=== PATIENT | female | born 1940 | race Caucasian/White ===

== ENCOUNTER → 2018-09-28 | Outpatient (CLI) | payer MEDICARE ==
[~2018-09-28] MED LIST: AMLO5TAB10 PO; ATOR20TA58 PO; IBUP200T58 PO; LISI1TAB7 PO; RANI150T2 PO
--- NOTE | 2018-09-28 14:11 | RAD ---
Left lower extremity bone length exam, 09/28/2018: HISTORY: Preop evaluation for knee surgery AP standing views of the left femur and lower leg were obtained with skin markers placed laterally as requested to aid in bone length measurements for surgical planning. There is severe degenerative change at the left knee joint with dominant involvement of the medial compartment, and a moderate associated varus deformity. No other bony abnormality is identified on this limited exam. Electronically signed by: Errol Harden MD (09/28/2018 2:08 PM) [facility]
--- NOTE | 2018-09-28 15:52 | RAD ---
MR of the left knee - Kessler and Nephew protocol History: Left knee DJD.. Technique: Images are obtained in accordance with the standard Kessler and Nephew protocol. 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 Severe primary osteoarthritis. Medial meniscal tear. Moderate joint effusion. Anterior cruciate ligament is poorly defined. The posterior crucial ligament is thick and irregular. Anterior subcutaneous edema. Electronically signed by: Noam Davidson MD (09/28/2018 3:49 PM) [id number]
== END | disposition home or self-care (01) ==
LOC: RAD 14:27
PROVIDERS: ATTEND Orthopaedic Surgery Sports Medicine
DX: S83.242A Other tear of medial meniscus, current injury, left knee, initial encounter (principal); M21.162 Varus deformity, not elsewhere classified, left knee; M25.462 Effusion, left knee; M17.12 Unilateral primary osteoarthritis, left knee; X58.XXXA Exposure to other specified factors, initial encounter; Y93.89 Activity, other specified; Y92.89 Other specified places as the place of occurrence of the external cause; Y99.8 Other external cause status
CPT/HCPCS: 73721; 77073

== ENCOUNTER → 2018-10-11 | Outpatient (CLI) | payer MEDICARE, OTHER ==
[2018-10-11 11:16] LABS: BILIRUBIN,URINE NEGATIVE (NEG); CLARITY,URINE CLEAR; COLOR,URINE YELLOW; NITRITE,URINE POSITIVE (NEG); PROTEIN,URINE NEGATIVE (NEG-TRACE); UROBILINOGEN,URINE 0.2 mg/dL (0.2 mg/dL)
[2018-10-11 11:23] LABS: RBC,URINE 0 /HPF (0-2); SQUAMOUS EPITHELIAL CELL,UR OCC /LPF
[2018-10-11 11:24] LABS: BACTERIA,URINE FEW /HPF (0-FEW)
[2018-10-11 11:39] LABS: BASO # 0.1 x10^3/uL (0.0-0.2); BASO % 1 % (0-3); EOS # 0.3 x10^3/uL (0.0-0.7); EOS % 5 % (0-3); HEMATOCRIT 33.8 % (36.0-47.0); HEMOGLOBIN 11.2 g/dL (12.0-15.5); LYMPH # 1.6 x10^3/uL (1.0-4.8); LYMPH % 29 % (24-48); MEAN CORPUSCULAR HEMOGLOBIN 31 pg (25-35); MEAN CORPUSCULAR HGB CONC 33 g/dL (31-37); MEAN CORPUSCULAR VOLUME 93 fL (79-100); MONO # 0.4 x10^3/uL (0.0-1.1); MONO % 8 % (0-9); NEUT # 3.1 x10^3uL (1.8-7.7); NEUT % 58 % (31-73); PLATELET COUNT 241 x10^3/uL (140-400); RED BLOOD COUNT 3.65 x10^6/uL (3.50-5.40); RED CELL DISTRIBUTION WIDTH 12.9 % (11.5-14.5); WHITE BLOOD COUNT 5.5 x10^3/uL (4.0-11.0)
[2018-10-11 11:49] LABS: PROTHROMBIN TIME PATIENT 14.1 SEC (11.7-14.0)
--- NOTE | 2018-10-11 11:49 | EKG ---
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
[2018-10-11 12:21] LABS: ALBUMIN 3.7 g/dL (3.4-5.0); CALCIUM 9.7 mg/dL (8.5-10.1); CREATININE 1.6 mg/dL (0.6-1.0); GFR 31.3; POTASSIUM 4.6 mmol/L (3.5-5.1)
--- NOTE | 2018-10-11 12:56 | RAD ---
EXAM: PA and Lateral Views of the Chest DATE: 10/11/2018 10:55 AM INDICATION: COMPARISON: No Prior FINDINGS: The heart is not enlarged. Mediastinal and hilar contours are normal. No focal parenchymal airspace opacity. No pleural effusion or pneumothorax. Degenerative changes of the spine are seen with associated thoracolumbar curvature. IMPRESSION: 1. No radiographic evidence for acute cardiopulmonary process. Electronically signed by: Maury Galarza MD (10/11/2018 12:54 PM) [id number]
== END | disposition home or self-care (01) ==
LOC: SURGPAT 10:46
PROVIDERS: ATTEND Orthopaedic Surgery Sports Medicine
DX: Z01.818 Encounter for other preprocedural examination (principal); M17.12 Unilateral primary osteoarthritis, left knee; E78.5 Hyperlipidemia, unspecified
CPT/HCPCS: 36415; 71046; 80048; 81001; 82040; 82306; 85025; 85610; 85651; 85730; 87086; 87186; 87641; 93005

== ENCOUNTER → 2018-10-26 | Outpatient (CLI) | payer MEDICARE ==
[~2018-10-26] MED LIST changes: +CIPR500T94 PO; +FERR325T14 PO; +MELO15TA23 PO; +OXYC1TAB15 PO; +TRAM50TA PO; +WARF-31 PO; +WARF-78 PO; +WARF2TAB96 PO
[2018-10-26 13:05] LABS: BILIRUBIN,URINE NEGATIVE (NEG); CLARITY,URINE CLEAR; COLOR,URINE YELLOW; NITRITE,URINE NEGATIVE (NEG); PROTEIN,URINE NEGATIVE (NEG-TRACE); UROBILINOGEN,URINE 0.2 mg/dL (0.2 mg/dL)
[2018-10-26 13:21] LABS: BACTERIA,URINE 0 /HPF (0-FEW); HYALINE CASTS, URINE MODERATE /HPF; RBC,URINE 0 /HPF (0-2); SQUAMOUS EPITHELIAL CELL,UR MANY /LPF
== END | disposition home or self-care (01) ==
LOC: LAB 12:13
PROVIDERS: ATTEND Orthopaedic Surgery Sports Medicine
DX: R82.71 Bacteriuria (principal)
CPT/HCPCS: 81001; 87086

== ENCOUNTER → 2018-11-01 | Outpatient (CLI) | payer MEDICARE ==
[~2018-11-01] MED LIST changes: -CIPR500T94 PO; -FERR325T14 PO; -MELO15TA23 PO; -OXYC1TAB15 PO; -TRAM50TA PO; -WARF-31 PO; -WARF-78 PO; -WARF2TAB96 PO
--- NOTE | 2018-11-01 15:13 | CARD ---
MR#: [id number] Date of Study: 11/01/2018 Ordering Physician: DIOGENES BOND, Referring Physician: DIOGENES BOND, Tech: Génesis Flowers MADDY APPROVED REPORT EXAM: Two-dimensional and M-mode echocardiogram with Doppler and color Doppler. Other Information Quality : Good INDICATION Murmur 2D DIMENSIONS RVDd2.4 (2.9-3.5cm)Left Atrium(2D)4.0 (1.6-4.0cm) IVSd1.1 (0.7-1.1cm)Aortic Root(2D)3.2 (2.0-3.7cm) LVDd4.4 (3.9-5.9cm)LVOT Diameter2.0 (1.8-2.4cm) PWd0.9 (0.7-1.1cm)LVDs2.8 (2.5-4.0cm) FS (%) 34.9 %SV55.6 ml LVEF(%)64.4 (>50%) Aortic Valve AoV Peak Ino.183.3cm/sAoV VTI38.9cm AO Peak GR.13.4mmHgLVOT Peak Ino.134.4cm/s LVOT VTI 38.12cmAO Mean GR.6mmHg CHEPE (VMAX)2.51rn0DXO (VTI)3.22cm2 Mitral Valve MV E Gatlupnl44.0cm/sMV DECEL EICH815nb MV A Pbihuckk891.0cm/sMV DRL67qi E/A Ratio0.8MVA (PHT)3.41cm2 TDI E/Lateral E'9.0E/Medial E'13.6 Tricuspid Valve TR P. Snvtdpge891ux/sRAP HQTNNZLG0miUe TR Peak Gr.03ciIqMDQX53khOv Pulmonary Vein S1 Ifdyexku680.0cm/sD2 Cgyybpyo25.2cm/s LEFT VENTRICLE The left ventricle is normal size. There is normal left ventricular wall thickness. The left ventricu lar systolic function is normal and the ejection fraction is within normal range. The Ejection Fracti on is 55-60%. There is normal LV segmental wall motion. Transmitral Doppler flow pattern is Grade I-a bnormal relaxation pattern. RIGHT VENTRICLE The right ventricle is normal size. The right ventricular systolic function is normal. ATRIA The left atrium is mildly dilated. The right atrium size is normal. The interatrial septum is intact with no evidence for an atrial septal defect or patent foramen ovale as noted on 2-D or Doppler imagi ng. AORTIC VALVE The aortic valve is calcified but opens well. Doppler and Color Flow revealed no significant aortic r egurgitation. There is no significant aortic valvular stenosis. MITRAL VALVE The mitral valve is calcified but opens well. Mitral annular calcification is mild. There is no evide nce of mitral valve prolapse. There is no mitral valve stenosis. Doppler and Color-flow revealed trac e to mild mitral regurgitation. TRICUSPID VALVE The tricuspid valve is normal in structure and function. Doppler and Color Flow revealed trace to mil d tricuspid regurgitation. There is mild pulmonary hypertension. The PA pressure was estimated at 37 mmHg. There is no tricuspid valve stenosis. PULMONIC VALVE The pulmonic valve is not well visualized. Doppler and Color Flow revealed mild pulmonic valvular reg urgitation. There is no pulmonic valvular stenosis. GREAT VESSELS The aortic root is normal in size. The ascending aorta is moderately dilated at 3.9 cm. The IVC is no rmal in size and collapses >50% with inspiration. PERICARDIAL EFFUSION There is no evidence of significant pericardial effusion. Critical Notification Critical Value: No <Conclusion> The left ventricular systolic function is normal and the ejection fraction is within normal range. Th e Ejection Fraction is 55-60%. There is normal LV segmental wall motion. The ascending aorta is moderately dilated at 3.9 cm. Signed by : Kalen Burgos, Electronically Approved : 11/01/2018 15:12:56
== END | disposition home or self-care (01) ==
LOC: ECHO 12:44
PROVIDERS: ATTEND Internal Medicine Cardiovascular Disease
DX: I08.8 Other rheumatic multiple valve diseases (principal); I27.20 Pulmonary hypertension, unspecified
CPT/HCPCS: 93306

== ENCOUNTER 2018-11-08 08:00 | Day surgery (SDC) | payer MEDICARE ==
[~2018-11-08] VITALS: Ht 160 cm; Wt 98.4 kg
[~2018-11-08 08:00] MED LIST changes: +ACETAMINOPHEN 500 MG TABLET PO PRN; +HYDROmorphone 2 MG/ML VIAL IV PRN; +IV RINGERS,LACTATED 1000ML 1,000 ML IV SCH; +LIDOCAINE 1% PF 2 ML VIAL. ID PRN; +MELOXICAM 7.5 MG TABLET PO PRN; +MORPHINE SULFATE 2 MG/ML VIAL. IV PRN; +ONDANSETRON PF 4 MG/2 ML VIAL. IV PRN; +PROCHLORPERAZINE 10 MG/2 ML VIAL. IV PRN; +TV=100ml MORPHINE 5 MG, KETOROLAC 30 MG, ROPIVacaine 0.5% PF 60 ML, EPINEPH... INT ART ONE; +fentaNYL PF VIAL 100 MCG/2 ML VIAL IV PRN
[2018-11-08] MEDS ORDERED: CIPR500T94 PO (08:35)
[2018-11-08] MEDS ORDERED: RANI150T2 PO (08:38)
[2018-11-08] MEDS ORDERED: TRAM50TA PO (08:41)
[2018-11-08] MEDS ORDERED: MELO15TA23 PO (08:42)
[2018-11-08] MEDS ORDERED: WARF-31 PO (08:42)
[2018-11-08 08:52] VITALS: BP 150/59
[2018-11-08 09:30] LABS: PROTHROMBIN TIME PATIENT 14.3 SEC (11.7-14.0)
== END 2018-11-08 11:50 | disposition home or self-care (01) ==
LOC: OPSVCIP 08:00 → SURG 08:00 → UNDOADMIN 08:00 → EDSTATUS 10:00 → UNDODISIN 11:50 → SURG 11:50
PROVIDERS: ATTEND Orthopaedic Surgery Sports Medicine
DX: M17.12 Unilateral primary osteoarthritis, left knee (principal); Z53.8 Procedure and treatment not carried out for other reasons
CPT/HCPCS: 36415; 85610; 85730; 86850; 86900; 86901; J0171; J1885; J2270; J2795; J7120

== ENCOUNTER → 2019-01-14 | Outpatient (CLI) | payer MEDICARE ==
[2018-12-01 08:02] VITALS: BP 105/45
[~2019-01-14] MED LIST changes: -ACETAMINOPHEN 500 MG TABLET PO PRN; +CIPR500T94 PO; +FERR325T14 PO; -HYDROmorphone 2 MG/ML VIAL IV PRN; -IV RINGERS,LACTATED 1000ML 1,000 ML IV SCH; -LIDOCAINE 1% PF 2 ML VIAL. ID PRN; +MELO15TA23 PO; -MELOXICAM 7.5 MG TABLET PO PRN; -MORPHINE SULFATE 2 MG/ML VIAL. IV PRN; -ONDANSETRON PF 4 MG/2 ML VIAL. IV PRN; +OXYC1TAB15 PO; -PROCHLORPERAZINE 10 MG/2 ML VIAL. IV PRN; +TRAM50TA PO; -TV=100ml MORPHINE 5 MG, KETOROLAC 30 MG, ROPIVacaine 0.5% PF 60 ML, EPINEPH... INT ART ONE; +WARF-31 PO; +WARF-78 PO; +WARF2TAB96 PO; -fentaNYL PF VIAL 100 MCG/2 ML VIAL IV PRN
--- NOTE | 2019-01-14 11:45 | RAD ---
Indication: Left hip pain for a while. Known injury TECHNIQUE: AP pelvis and frog-leg view of the left hip joint COMPARISON: None FINDINGS/ impression: No acute fracture or this location. Mild bilateral hip joint ulcer arthritis. SI joints within normal limits. Electronically signed by: Bob Roman DO (01/14/2019 11:42 AM) [facility]
== END ==
LOC: PMGORTHO 10:54
PROVIDERS: ATTEND Orthopaedic Surgery Sports Medicine

== ENCOUNTER → 2019-01-21 | Outpatient (CLI) | payer MEDICARE ==
[2018-12-01 08:02] VITALS: BP 105/45
--- NOTE | 2019-01-21 12:09 | KCIC ---
Left lower extremity venous duplex study 01/21/2019 Clinical History: Lower extremity pain and swelling Technique: Using a combination of real time ultrasound imaging and color-flow and pulse Doppler imaging techniques, including spectral analysis, graded compression and augmentation, duplex evaluation of the deep venous system of the left lower extremity was performed. Multiple images were obtained. Findings: There is no sonographic evidence of deep venous thrombosis involving the visualized deep venous structures of the left lower extremity. Significant left lower extremity subcutaneous edema noted, particularly below the knee. Impression: No evidence of deep venous thrombosis involving the left lower extremity Electronically signed by: Tera Ash MD (01/21/2019 12:06 PM) [id number]
== END ==
LOC: KCIC US 10:46
PROVIDERS: ATTEND Orthopaedic Surgery Sports Medicine
DX: M79.662 Pain in left lower leg (principal); M79.89 Other specified soft tissue disorders
CPT/HCPCS: 93971

== ENCOUNTER → 2021-07-01 | Outpatient (CLI) | payer MEDICARE ==
[2018-12-01 08:02] VITALS: BP 105/45
[~2021-07-01] MED LIST changes: +AMLO-186 PO; -AMLO5TAB10 PO; +LISI1TAB39 PO; -LISI1TAB7 PO; -WARF-78 PO; +WARF5TAB2 PO
--- NOTE | 2021-07-01 08:44 | KCIC ---
EXAM: Chest, 2 views. HISTORY: Cough. Endometrial cancer. COMPARISON: 10/11/2018 FINDINGS: 2 views of the chest are obtained. There is no infiltrate, pleural effusion or pneumothorax . The heart is normal in size. IMPRESSION: No acute pulmonary finding. Electronically signed by: Janey Gibson MD (07/01/2021 8:42 AM) [id number]
== END ==
LOC: KCIC 08:14
PROVIDERS: ATTEND Family Medicine
DX: R05.9 Cough, unspecified (principal)
CPT/HCPCS: 71046